=== PATIENT | female | born 1995 | race Caucasian/White ===

== ENCOUNTER 2023-11-05 08:26 | Emergency (ER) | payer OTHER ==
[2023-11-05 08:57] VITALS: BP 142/94; RESP 18; TEMP 97.8; BMI 81.3
[2023-11-05 09:41] VITALS: PULSE 87
== END 2023-11-05 10:00 | disposition home or self-care (01) ==
LOC: JER 08:26
DX: M79.645 Pain in left finger(s) (principal); Y04.1XXA Assault by human bite, initial encounter; Y99.0 Civilian activity done for income or pay
CPT/HCPCS: 99282-25